=== PATIENT | male | born 1970 | race Caucasian/White ===

== ENCOUNTER 2020-09-07 14:46 | Outpatient (REF) | payer MEDICARE, MEDICAID, SELFPAY ==
--- NOTE | 2020-09-17 14:43 | MHC.AU.P13 ---
Hearing Aid Evaluation- Binaural Date of Visit: 09/07/20 Description of Hearing: Mild to moderate SNHL from 250-1000 Hz, rising to borderline normal to mild hearing loss in the high frequencies. Tested at Dr. Queen's office on 08/28/2020 and binaural amplification was recommended in order to facilitate improved communication. Summary: Patient states that he got hearing aids here in 2016. We have no record of him as a patient in our clinic. He also notes that Dr. Queen's office didn't have hearing aid records for him. He no longer has the previous hearing aids and states that he has lost them. He would like rechargeable ITE style aids given dexterity concerns. Getting them in black to look like wireless headphones. Going to check with [facility] regarding his hearing aid eligibility. Hearing Instrument Selection: Right Ear: Head Porter: Ophis Vape Model: Sanya 1600 ITC R Battery Size: Rechargeable Color: Black Left Ear: Head Porter: Danny Model: Sanya 1600 ITC R Battery Size: Rechargeable Color: Black Recommendations: Recommendations: Fitting will be scheduled when all materials have arrived. Recommendations: Hearing aids will be ordered if he is eligible for new aids. If not yet eligible, an online PA will be submitted since he lost the previous aids. Diagnosis Code(s): Primary Diagnosis: H90.3 Bilateral Sensorineural Hearing Loss Services Performed: Hearing Aid Evaluation and [place]: Hearing Aid Evaluation- Binaural Signature: Provider: Christine Estrada, CCC-A
== END 2020-09-07 14:47 | disposition home or self-care (01) ==
LOC: HO.HAP 14:46
PROVIDERS: PCP Internal Medicine Geriatric Medicine; Visit Provider Internal Medicine Geriatric Medicine
DX: H90.3 Sensorineural hearing loss, bilateral (principal); Z46.1 Encounter for fitting and adjustment of hearing aid
CPT/HCPCS: 92591; V5275

== ENCOUNTER → 2020-10-15 08:21 | Outpatient (BNVA) | payer MEDICARE, MEDICAID, SELFPAY | PROVIDERS: PCP Internal Medicine Geriatric Medicine; Visit Provider Internal Medicine Endocrinology, Diabetes & Metabolism | DX: Z76.89 Persons encountering health services in other specified circumstances (principal) | CPT/HCPCS: 82947; 99202 ==

== ENCOUNTER 2020-10-15 10:02 | Outpatient (REF) | payer MEDICARE, MEDICAID, SELFPAY ==
[2020-10-15 13:44] LABS: Hematocrit 44.9 % (42-52); Hemoglobin 15.1 g/dl (14.0-18.0); Mean Corpuscular HGB Conc 33.6 g/dl (31.0-36.0); Mean Corpuscular Hemoglobin 30.6 pg (27.0-33.0); Mean Corpuscular Volume 91.1 fL (80-98); Mean Platelet Volume 12.5 fL (9.4-12.4); Platelet Count 152 X10*3/uL (160-400); Red Blood Count 4.93 X10*6/uL (4.60-5.80); Red Cell Distribution Width 12.8 % (11.0-16.0); White Blood Count 7.4 X10*3/uL (4.8-10.8)
[2020-10-15 14:07] LABS: Alanine Aminotransferase 43 U/L (0-40); Albumin Level 4.4 g/dL (3.5-5.0); Alkaline Phosphatase 109 U/L (39-117); Anion Gap 15 (12-20); Aspartate Amino Transferase 27 U/L (5-37); Bilirubin Total 0.7 mg/dL (0.0-1.0); Blood Urea Nitrogen 12 mg/dL (9-16); Calcium 9.3 mg/dL (8.4-10.2); Carbon Dioxide 24 mmol/L (22-29); Chloride 103 mmol/L (96-108); Cholesterol 118 mg/dL; Estimated Glomerular Filt Rate > 60; Glucose Fasting 378 mg/dL (60-99); HDL Cholesterol 35 mg/dL; LDL Cholesterol Calculated 48 mg/dl; Potassium 4.1 mmol/l (3.3-5.1); Sodium 138 mmol/L (135-145); Total Protein 7.6 g/dL (6.5-8.0); Triglycerides 179 mg/dL
[2020-10-15 14:12] LABS: Creatinine Urine 48.83 mg/dL; Microalbum/Creatinine Ratio Ur 83.9 ug/mg cr
[2020-10-15 14:27] LABS: Vitamin B12 499 pg/mL (200-900)
[2020-10-15 14:28] LABS: Thyroid Stimulating Hormone 3.15 uIU/mL (0.32-4.0); Vitamin D 25-OH Total 29.5 ng/mL (>30)
[2020-10-16 08:57] LABS: C Peptide 3.03 ng/mL (0.80-3.85)
[2020-10-16 09:22] LABS: LDL Cholesterol Direct 56 mg/dL (<100)
== END 2020-10-15 10:03 | disposition home or self-care (01) ==
LOC: HO.10HDL 10:02
PROVIDERS: Visit Provider Internal Medicine Endocrinology, Diabetes & Metabolism
DX: E11.65 Type 2 diabetes mellitus with hyperglycemia (principal)
CPT/HCPCS: 36415; 80053; 80061; 82043; 82306; 82607; 82947; 83721; 84439; 84443; 84681; 85027; 99202

== ENCOUNTER 2020-10-19 09:18 | Outpatient (REF) | payer MEDICARE, MEDICAID, SELFPAY | END 2020-10-19 09:19 | disposition home or self-care (01) | LOC: HO.HAP 09:18 | PROVIDERS: Visit Provider Internal Medicine Geriatric Medicine | DX: Z46.1 Encounter for fitting and adjustment of hearing aid (principal); H90.3 Sensorineural hearing loss, bilateral | CPT/HCPCS: V5011; V5020; V5160; V5260 ==

== ENCOUNTER 2021-04-17 12:50 | Outpatient (RCR) | payer MEDICARE, MEDICAID, SELFPAY | END 2021-05-03 13:50 | disposition home or self-care (01) | LOC: HO.PT 12:50 | PROVIDERS: PCP Nurse Practitioner Primary Care; Visit Provider Nurse Practitioner Primary Care | DX: G80.9 Cerebral palsy, unspecified (principal) | CPT/HCPCS: 97110; 97162 ==

== ENCOUNTER 2021-06-19 10:45 | Outpatient (REF) | payer MEDICARE, MEDICAID, SELFPAY ==
--- NOTE | ~2021-06-19 | XR_ITS ---
EXAMINATION: XR HAND, LEFT CLINICAL INFORMATION: Left wrist pain status-post injury. COMPARISON: None TECHNIQUE: PA, lateral, and oblique views of the left hand. FINDINGS: Bony alignment and mineralization are normal. There is a neutral ulnar variance. The proximal and distal carpal rows appear intact. 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 There is no unusual degenerative change. No focal bone erosion, periosteal thickening or soft tissue calcifications are seen. There is no soft tissue swelling or foreign body. XR/XR hand LT min 3V IMPRESSION: 1. No acute fracture or dislocation is seen. 2. 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 Hitchhiker thumb and the associated with rheumatoid arthritis, although it is not a specific finding for this diagnosis. As well, no other manifestation of rheumatoid arthritis are seen. Please correlate clinically.
--- NOTE | ~2021-06-19 | XR_ITS ---
EXAMINATION: XR LUMBOSACRAL SPINE CLINICAL INFORMATION: Lower back pain status-post injury. COMPARISON: None TECHNIQUE: AP and lateral views of the lumbar spine and lateral view of the lumbosacral junction. FINDINGS: Bony mineralization is normal. There is a mild to moderate L3 anterior wedge compression fracture. At L5-S1, there is a 4 mm retrolisthesis. The remaining disc spaces are relatively well-maintained. No acute fracture or spondylolisthesis is seen. There is multi-level lumbar spondylosis, most pronounced at L2-3, where it is marked. There is facet arthropathy at L5-S1. The paravertebral soft tissues are unremarkable. XR/XR lumbar spine 2-3V IMPRESSION: 1. There is an age-indeterminate mild to moderate L3 anterior wedge compression fracture. 2. There is moderate degenerative disc disease at L5-S1. 3. There is multi-level lumbar spondylosis, most pronounced at L2-3. 4. There is facet arthropathy at L5-S1.
== END 2021-06-19 10:46 | disposition home or self-care (01) ==
LOC: HO.XRAY 10:45
PROVIDERS: Absent Provider Nurse Practitioner Primary Care; PCP Nurse Practitioner Primary Care; Visit Provider Emergency Medicine
DX: S39.92XA Unspecified injury of lower back, initial encounter (principal); S69.92XA Unspecified injury of left wrist, hand and finger(s), initial encounter; X58.XXXA Exposure to other specified factors, initial encounter; Y93.9 Activity, unspecified; Y92.9 Unspecified place or not applicable; Y99.9 Unspecified external cause status
CPT/HCPCS: 72100; 73130

== ENCOUNTER → 2022-04-11 09:34 | Outpatient (BNVA) | payer OTHER, MEDICAID, SELFPAY | PROVIDERS: PCP Nurse Practitioner Primary Care; Visit Provider Urology | DX: N53.14 Retrograde ejaculation (principal); E11.65 Type 2 diabetes mellitus with hyperglycemia; E11.42 Type 2 diabetes mellitus with diabetic polyneuropathy; Z79.4 Long term (current) use of insulin | CPT/HCPCS: 99202 ==

== ENCOUNTER 2022-09-05 12:46 | Outpatient (REF) | payer OTHER, SELFPAY ==
--- NOTE | ~2022-09-05 | US_ITS ---
EXAMINATION: US VENOUS ULTRASOUND WITH DOPPLER LOWER EXTREMITY, BILATERAL CLINICAL INFORMATION: Pain/swelling of both legs COMPARISON: None TECHNIQUE: Ultrasound of the deep veins is performed from the hip to the calf with compression sonography and color and pulse Doppler assessment. Spectral analysis with color-flow imaging is performed. FINDINGS: RIGHT: There is normal venous compression and respiratory variation and augmented flow. The visualized common femoral vein, superficial femoral vein, profunda femoral vein, popliteal vein, and the trifurcation region shows no evidence of deep venous thrombosis. There is no significant popliteal fossa cyst. LEFT: There is normal venous compression and respiratory variation and augmented flow. The visualized common femoral vein, superficial femoral vein, profunda femoral vein, popliteal vein, and the trifurcation region shows no evidence of deep venous thrombosis. There is no significant popliteal fossa cyst. If the patient's symptoms persist, followup ultrasound in 5 days 7 days might be of value to exclude proximal propagation from a non-visualized calf vein. US/US venous duplex LE BI IMPRESSION: No DVT demonstrated in the bilateral lower extremities.
== END 2022-09-05 12:47 | disposition home or self-care (01) ==
LOC: HO.US 12:46
PROVIDERS: Absent Provider Nurse Practitioner Primary Care; PCP Nurse Practitioner Primary Care; Visit Provider Emergency Medicine
DX: R60.0 Localized edema (principal)
CPT/HCPCS: 93970

== ENCOUNTER 2023-08-04 20:57 | Outpatient (REF) | payer MEDICARE, MEDICAID, SELFPAY ==
[2023-08-04 21:50] LABS: Influenza A PCR NEGATIVE (Negative); Influenza B PCR NEGATIVE (Negative); Resp Syncy Virus RNA Qual PCR NEGATIVE (Negative); SARS COV2 PCR INHOUSE NEGATIVE (Negative)
== END 2023-08-04 20:58 | disposition home or self-care (01) ==
LOC: HO.HHCLNP 20:57
PROVIDERS: Visit Provider Internal Medicine Geriatric Medicine
DX: J01.90 Acute sinusitis, unspecified (principal); B96.89 Other specified bacterial agents as the cause of diseases classified elsewhere; Z20.828 Contact with and (suspected) exposure to other viral communicable diseases
CPT/HCPCS: 0241U

== ENCOUNTER 2023-08-24 13:04 | Outpatient (REF) | payer MEDICARE, SELFPAY ==
[2023-08-24 16:44] LABS: Creatinine Urine 31.59 mg/dL; Microalbum/Creatinine Ratio Ur 37.9 ug/mg cr (<30)
[2023-08-24 16:48] LABS: Estimated Average Glucose 177 mg/dL; Hemoglobin A1c % 7.8 % (<6.0)
[2023-08-24 16:49] LABS: Anion Gap 16 (12-20); Blood Urea Nitrogen 17 mg/dL (9-16); Calcium 10.4 mg/dL (8.4-10.2); Carbon Dioxide 28 mmol/L (22-29); Chloride 100 mmol/L (96-108); Cholesterol 134 mg/dL (<200); Estimated Glomerular Filt Rate > 60; Glucose Random 210 mg/dL (60-115); HDL Cholesterol 40 mg/dL (>40); LDL Cholesterol Calculated 68 mg/dL (<100); Potassium 4.4 mmol/L (3.3-5.1); Sodium 140 mmol/L (135-145); Triglycerides 131 mg/dL (<150)
== END 2023-08-24 13:05 | disposition home or self-care (01) ==
LOC: HO.HHCL 13:04
PROVIDERS: Visit Provider Nurse Practitioner Primary Care
DX: E11.69 Type 2 diabetes mellitus with other specified complication (principal); E66.9 Obesity, unspecified; E78.5 Hyperlipidemia, unspecified; I10 Essential (primary) hypertension
CPT/HCPCS: 36415; 80048; 80061; 82043; 82570; 83036

== ENCOUNTER 2023-09-18 17:56 | Outpatient (REF) | payer MEDICARE, SELFPAY | END 2023-09-18 17:57 | disposition home or self-care (01) | LOC: HO.HHCLNP 17:56 | PROVIDERS: Visit Provider Internal Medicine Geriatric Medicine | DX: N30.01 Acute cystitis with hematuria (principal) | CPT/HCPCS: 87086; 87088; 87186 ==

== ENCOUNTER 2023-11-26 17:43 | Outpatient (REF) | payer MEDICARE, SELFPAY | END 2023-11-26 17:44 | disposition home or self-care (01) | LOC: HO.HHCLNP 17:43 | PROVIDERS: Visit Provider Family Medicine | DX: R30.9 Painful micturition, unspecified (principal) | CPT/HCPCS: 87086 ==

== ENCOUNTER 2024-04-01 09:42 | Outpatient (REF) | payer MEDICARE, SELFPAY ==
--- NOTE | ~2024-04-01 | US_ITS ---
EXAMINATION: US ABDOMEN COMPLETE CLINICAL INFORMATION: Chronic abdominal pain, nonspecific. COMPARISON: None available. TECHNIQUE: Real-time imaging of the abdominal viscera. Technically limited study secondary to bowel gas, body habitus and inability to hold breath. FINDINGS: PANCREAS: Normal head, neck and proximal body. The remainder of the pancreas is obscured by bowel gas. ABDOMINAL AORTA: The proximal, mid, and distal segments are normal in caliber. INFERIOR VENA CAVA: Visualized portions are normal. LIVER: The liver is normal in size. The liver contour is normal. There is diffuse increased liver parenchymal echogenicity, consistent with hepatic steatosis. No focal hepatic lesion. There is no intrahepatic biliary duct dilatation seen. GALLBLADDER: The gallbladder is physiologically distended without evidence of stones, sludge, polyps, or pericholecystic fluid. No sonographic Gusman's sign. COMMON BILE DUCT: Normal in caliber measuring 0.4 cm in diameter. RIGHT KIDNEY: Normal. No hydronephrosis. No renal calculi or focal parenchymal lesions. The kidney measures 12.9 cm in maximum dimension. LEFT KIDNEY: Normal. No hydronephrosis. No renal calculi or focal parenchymal lesions. The kidney measures 15.2 cm in maximum dimension. SPLEEN: The spleen is enlarged. The spleen measures 17.8 cm in maximum dimension. FREE FLUID: None. US/US abdomen complete IMPRESSION: 1. Hepatic steatosis. 2. Splenomegaly. 3. Limited views of the pancreas.
== END 2024-04-01 09:43 | disposition home or self-care (01) ==
LOC: HO.US 09:42
PROVIDERS: PCP Nurse Practitioner Primary Care; Visit Provider Nurse Practitioner Primary Care
DX: R10.9 Unspecified abdominal pain (principal); G89.29 Other chronic pain
CPT/HCPCS: 76700